=== PATIENT | female | born 1950 | race Caucasian/White ===

== ENCOUNTER 2018-09-29 10:18 | Day surgery (SDC) | payer OTHER, MEDICARE ==
[2018-09-29 08:07] VITALS: BMI 27.5
[2018-09-29 14:11] VITALS: TEMP 97.9
[2018-09-29 15:12] VITALS: BP 112/67; PULSE 74
--- NOTE | 2018-10-01 18:13 | PATH ---
Surgical Pathology Report Patient Name: SADAF MOLINA [facility]. Rec. #: [id number] /Age/Gender: 1950 (Age: 68) / F Account: [id number] Location: [facility]-ENDOSCOPY Taken: 09/29/2018 Received: 09/30/2018 Reported: 10/01/2018 Physicians: Krystian Womack D.O. Specimen(s) Received A: CECAL POLYP #1 B: APPENDICEAL ORIFICE POLYP C: SIGMOID POLYP D: RECTAL POLYPS E: ANAL PAPILLA Clinical History Followup diverticulitis, history of adenomatous polyps Postoperative diagnosis: Colon polyps, diverticulosis Final Diagnosis A. CECAL POLYP #1, BIOPSY: POLYPOID COLONIC MUCOSA WITH PROMINENT LYMPHOID AGGREGATE. B. APPENDICEAL ORIFICE, POLYPS, BIOPSY: TUBULAR ADENOMA. POLYPOID COLONIC MUCOSA WITH PROMINENT LYMPHOID AGGREGATE. C. SIGMOID COLON, POLYP, BIOPSY: TUBULAR ADENOMA. D. RECTAL POLYPS, BIOPSY: HYPERPLASTIC POLYP(S). E. ANAL PAPILLA, BIOPSY: POLYPOID SQUAMOUS MUCOSA WITH FOCAL PARAKERATOSIS AND FOCAL STROMAL FIBROSIS COMPATIBLE WITH HYPERTROPHIED ANAL PAPILLA. Comment: Suggest clinical/endoscopic correlation. Electronically Signed Sadaf Schroeder M.D. Gross Description A. Received in formalin, labeled "cecal polyp #1" is a monahan, irregular portion of soft tissue measuring 0.3 cm. in greatest dimension. The specimen is submitted in toto in one cassette. B. Received in formalin, labeled "appendiceal orifice polyps x3" are 3 monahan, irregular portions of soft tissue ranging from 0.1-0.3 cm. in greatest dimension. The specimens are submitted in toto in one cassette. C. Received in formalin, labeled "sigmoid polyp biopsy" is a monahan, irregular portion of soft tissue measuring 0.2 cm. in greatest dimension. The specimen is submitted in toto in one cassette. D. Received in formalin, labeled "rectal polyps biopsy x3" are 2 monahan, irregular portions of soft tissue averaging 0.3 cm. in greatest dimension. The specimens are submitted in toto in one cassette. E. Received in formalin, labeled "anal papilla" are 5 monahan, irregular portions of soft tissue ranging from 0.1-0.4 cm. in greatest dimension. The specimens are submitted in toto in one cassette. DL/09/30/201809/30/2018
== END 2018-09-29 15:12 | disposition home or self-care (01) ==
LOC: JASU-ENDO 10:18
PROVIDERS: ATTEND Internal Medicine Gastroenterology
PROC: 0DBN8ZX Excision of Sigmoid Colon, Via Natural or Artificial Opening Endoscopic, Diagnostic (ICD-10-PCS; 2018-09-29)
PROC: 0DBP8ZX Excision of Rectum, Via Natural or Artificial Opening Endoscopic, Diagnostic (ICD-10-PCS; 2018-09-29)
PROC: 0DBH8ZX Excision of Cecum, Via Natural or Artificial Opening Endoscopic, Diagnostic (ICD-10-PCS; principal; 2018-09-29 11:30)
DX: Z12.11 Encounter for screening for malignant neoplasm of colon (principal); K62.1 Rectal polyp; D12.0 Benign neoplasm of cecum; D12.5 Benign neoplasm of sigmoid colon; K64.8 Other hemorrhoids; K57.30 Diverticulosis of large intestine without perforation or abscess without bleeding
CPT/HCPCS: 88305-TC

== ENCOUNTER 2019-03-16 10:18 | Day surgery (SDC) | payer OTHER, MEDICARE ==
[2019-03-15 15:19] VITALS: BMI 26.9
[2019-03-16 12:02] VITALS: TEMP 97.5
[2019-03-16 12:50] VITALS: BP 117/74; PULSE 65
--- NOTE | 2019-03-17 16:30 | PATH ---
Surgical Pathology Report Patient Name: REINALDO MOLINA [facility]. Rec. #: [id number] /Age/Gender: 1950 (Age: 68) / F Account: [id number] Location: U-ENDOSCOPY Taken: 03/16/2019 Received: 03/16/2019 Reported: 03/17/2019 Physicians: Krystian Womack D.O. Specimen(s) Received A: ULCER, BODY OF STOMACH H.PYLORI B: ANGULARIS AND BODY C: MID AND DISTAL ESOPHAGUS D: PROXIMAL ESOPHAGUS Clinical History Dysphagia Postoperative diagnosis: Gastritis, gastric ulcer Final Diagnosis A. ULCER, BODY OF STOMACH, BIOPSY: GASTRIC MUCOSA SHOWING FOCAL EPITHELIAL EROSION WITH REGENERATIVE CHANGE, CHRONIC GASTRITIS, AND STROMAL EDEMA. IMMUNOSTAIN FOR H. PYLORI IS NEGATIVE. NEGATIVE FOR INTESTINAL METAPLASIA. B. ANGULARIS AND BODY, BIOPSY: GASTRIC MUCOSA WITH MILD CHRONIC GASTRITIS. IMMUNOSTAIN FOR H. PYLORI IS NEGATIVE. NEGATIVE FOR INTESTINAL METAPLASIA. C. MID AND DISTAL ESOPHAGUS, BIOPSY: SQUAMOUS (ESOPHAGEAL) MUCOSA WITH NO SIGNIFICANT PATHOLOGIC CHANGE. NO HISTOLOGIC EVIDENCE OF EOSINOPHILIC ESOPHAGITIS. D. PROXIMAL ESOPHAGUS, BIOPSY: SQUAMOUS (ESOPHAGEAL) MUCOSA WITH NO SIGNIFICANT PATHOLOGIC CHANGE. NO HISTOLOGIC EVIDENCE OF EOSINOPHILIC ESOPHAGITIS. Electronically Signed Jaron Guardado M.D. Gross Description A. Received in formalin, labeled "biopsy ulcer body of stomach" are 4 monahan, irregular portions of soft tissue ranging from 0.3-0.4 cm. in greatest dimension. The specimens are submitted in toto in one cassette. B. Received in formalin, labeled "biopsy angularis and body" are 3 monahan, irregular portions of soft tissue ranging from 0.2-0.3 cm. in greatest dimension. The specimens are submitted in toto in one cassette. C. Received in formalin, labeled "biopsy mid and distal esophagus" are 4 monahan, irregular portions of soft tissue ranging from 0.1-0.3 cm. in greatest dimension. The specimens are submitted in toto in one cassette. D. Received in formalin, labeled "biopsy proximal esophagus" are 2 monahan, irregular portions of soft tissue measuring 0.2 and 0.4 cm. in greatest dimension. The specimens are submitted in toto in one cassette. DL/03/16/2019 saudi/03/16/2019
== END 2019-03-16 13:09 | disposition home or self-care (01) ==
LOC: JASU-ENDO 10:18
PROVIDERS: ATTEND Internal Medicine Gastroenterology
PROC: 0DB68ZX Excision of Stomach, Via Natural or Artificial Opening Endoscopic, Diagnostic (ICD-10-PCS; 2019-03-16)
PROC: 0DB18ZX Excision of Upper Esophagus, Via Natural or Artificial Opening Endoscopic, Diagnostic (ICD-10-PCS; 2019-03-16)
PROC: 0DB28ZX Excision of Middle Esophagus, Via Natural or Artificial Opening Endoscopic, Diagnostic (ICD-10-PCS; 2019-03-16)
PROC: 0DB38ZX Excision of Lower Esophagus, Via Natural or Artificial Opening Endoscopic, Diagnostic (ICD-10-PCS; 2019-03-16)
PROC: 0DB48ZX Excision of Esophagogastric Junction, Via Natural or Artificial Opening Endoscopic, Diagnostic (ICD-10-PCS; 2019-03-16)
PROC: 0DB98ZX Excision of Duodenum, Via Natural or Artificial Opening Endoscopic, Diagnostic (ICD-10-PCS; principal; 2019-03-16 12:15)
DX: K29.50 Unspecified chronic gastritis without bleeding (principal); K25.9 Gastric ulcer, unspecified as acute or chronic, without hemorrhage or perforation
CPT/HCPCS: 88305-TC; 88342-TC

== ENCOUNTER 2021-03-22 07:13 | Day surgery (SDC) | payer OTHER, MEDICARE ==
[2021-03-14 11:18] VITALS: BMI 28.3
[2021-03-22] MEDS ORDERED: oxyCODONE HCL 5 MG TABLET PO PRN (07:50)
[2021-03-22] MEDS ORDERED: ONDANSETRON 4 MG/2 ML VIAL IVPUSH PRN (07:50)
[2021-03-22] MEDS ORDERED: PROMETHAZINE HCL 25 MG/1 ML VIAL IVPUSH PRN (07:50)
[2021-03-22] MEDS ORDERED: LACTATED RINGERS SOLUTION 1,000 ML IV SCH (08:00)
[2021-03-22] MEDS ORDERED: BUPIVACAINE HCL/PF 0.25% (2.5MG/ML) 10 ML VIAL ONE (08:25)
[2021-03-22] MEDS ORDERED: BUPIVACAINE HCL 50 ML ONE (08:26)
[2021-03-22] MEDS ORDERED: LIDOCAINE HCL 1%, 10 MG/ML (20ML VIAL) ONE (08:26)
[2021-03-22] MEDS ORDERED: PROPOFOL 20 ML ONE ×3 (09:23)
[2021-03-22] MEDS ORDERED: ceFAZolin SODIUM 1 GM VIAL ONE (09:35)
[2021-03-22 10:21] VITALS: PULSE 79; TEMP 97.7
[2021-03-22 10:50] VITALS: BP 114/50
== END 2021-03-22 11:10 | disposition home or self-care (01) ==
LOC: FASU 07:13
PROVIDERS: ATTEND Orthopaedic Surgery
PROC: 0LB60ZZ Excision of Left Lower Arm and Wrist Tendon, Open Approach (ICD-10-PCS; 2021-03-22)
PROC: 0LB60ZZ Excision of Left Lower Arm and Wrist Tendon, Open Approach (ICD-10-PCS; 2021-03-22)
PROC: 0LB60ZZ Excision of Left Lower Arm and Wrist Tendon, Open Approach (ICD-10-PCS; 2021-03-22)
PROC: 0LB60ZZ Excision of Left Lower Arm and Wrist Tendon, Open Approach (ICD-10-PCS; 2021-03-22)
PROC: 0LB60ZZ Excision of Left Lower Arm and Wrist Tendon, Open Approach (ICD-10-PCS; 2021-03-22)
PROC: 0LB60ZZ Excision of Left Lower Arm and Wrist Tendon, Open Approach (ICD-10-PCS; 2021-03-22)
PROC: 0LB60ZZ Excision of Left Lower Arm and Wrist Tendon, Open Approach (ICD-10-PCS; 2021-03-22)
PROC: 0LB60ZZ Excision of Left Lower Arm and Wrist Tendon, Open Approach (ICD-10-PCS; 2021-03-22)
PROC: 0LB60ZZ Excision of Left Lower Arm and Wrist Tendon, Open Approach (ICD-10-PCS; 2021-03-22)
PROC: 01N50ZZ Release Median Nerve, Open Approach (ICD-10-PCS; principal; 2021-03-22 09:42)
DX: G56.02 Carpal tunnel syndrome, left upper limb (principal); M65.832 Other synovitis and tenosynovitis, left forearm
CPT/HCPCS: 88304-TC

== ENCOUNTER 2021-08-30 07:46 | Day surgery (SDC) | payer OTHER, MEDICARE ==
[2021-08-14 13:37] VITALS: BMI 27.3
[2021-08-30] MEDS ORDERED: LIDOCAINE HCL 1%, 10 MG/ML (20ML VIAL) ONE (07:54)
[2021-08-30] MEDS ORDERED: BUPIVACAINE HCL 50 ML ONE (07:55)
[2021-08-30] MEDS ORDERED: SUCCINYLCHOLINE CHLORIDE 200 MG/10 ML SYRINGE ONE (10:04)
[2021-08-30] MEDS ORDERED: PROPOFOL 20 ML ONE ×2 (10:04)
[2021-08-30] MEDS ORDERED: MIDAZOLAM HCL 2 MG/2 ML SINGLE DOSE VIAL ONE (10:04)
[2021-08-30] MEDS ORDERED: ONDANSETRON 4 MG/2 ML VIAL ONE (10:18)
[2021-08-30] MEDS ORDERED: DEXAMETHASONE SOD PHOSPHATE 4 MG/1 ML VIAL ONE (10:18)
[2021-08-30] MEDS ORDERED: ceFAZolin SODIUM 1 GM VIAL ONE (10:18)
[2021-08-30] MEDS ORDERED: KETOROLAC TROMETHAMINE 30 MG/1 ML VIAL ONE (10:18)
[2021-08-30] MEDS ORDERED: ONDANSETRON 4 MG/2 ML VIAL IVPUSH PRN (10:46)
[2021-08-30] MEDS ORDERED: ACETAMINOPHEN 325 MG TABLET (FP) PO PRN (10:46)
[2021-08-30] MEDS ORDERED: oxyCODONE HCL 5 MG TABLET PO PRN (10:46)
[2021-08-30 10:59] VITALS: TEMP 97.8
[2021-08-30 11:22] VITALS: BP 105/67; PULSE 75
== END 2021-08-30 11:58 | disposition home or self-care (01) ==
LOC: FASU 07:46
PROVIDERS: ATTEND Orthopaedic Surgery
PROC: 0LB50ZZ Excision of Right Lower Arm and Wrist Tendon, Open Approach (ICD-10-PCS; 2021-08-30)
PROC: 0LB50ZZ Excision of Right Lower Arm and Wrist Tendon, Open Approach (ICD-10-PCS; 2021-08-30)
PROC: 0LB50ZZ Excision of Right Lower Arm and Wrist Tendon, Open Approach (ICD-10-PCS; 2021-08-30)
PROC: 0LB50ZZ Excision of Right Lower Arm and Wrist Tendon, Open Approach (ICD-10-PCS; 2021-08-30)
PROC: 0LB50ZZ Excision of Right Lower Arm and Wrist Tendon, Open Approach (ICD-10-PCS; 2021-08-30)
PROC: 0LB50ZZ Excision of Right Lower Arm and Wrist Tendon, Open Approach (ICD-10-PCS; 2021-08-30)
PROC: 0LB50ZZ Excision of Right Lower Arm and Wrist Tendon, Open Approach (ICD-10-PCS; 2021-08-30)
PROC: 0LB50ZZ Excision of Right Lower Arm and Wrist Tendon, Open Approach (ICD-10-PCS; 2021-08-30)
PROC: 0LB50ZZ Excision of Right Lower Arm and Wrist Tendon, Open Approach (ICD-10-PCS; 2021-08-30)
PROC: 01N50ZZ Release Median Nerve, Open Approach (ICD-10-PCS; principal; 2021-08-30 10:17)
DX: G56.01 Carpal tunnel syndrome, right upper limb (principal); M65.861 Other synovitis and tenosynovitis, right lower leg
CPT/HCPCS: 88304-TC; 88312-TC

== ENCOUNTER 2022-12-10 04:24 | Day surgery (SDC) | payer OTHER, MEDICARE ==
[2022-12-09 13:39] VITALS: BMI 25.4
[2022-12-10 10:06] VITALS: TEMP 97
[2022-12-10 10:32] VITALS: RESP 13
[2022-12-10 10:40] VITALS: BP 123/65; PULSE 61
== END 2022-12-10 11:05 | disposition home or self-care (01) ==
LOC: JASU-ENDO 04:24
PROVIDERS: ATTEND Internal Medicine Gastroenterology
PROC: 0DBP8ZX Excision of Rectum, Via Natural or Artificial Opening Endoscopic, Diagnostic (ICD-10-PCS; 2022-12-10)
PROC: 3E0H8KZ Introduction of Other Diagnostic Substance into Lower GI, Via Natural or Artificial Opening Endoscopic (ICD-10-PCS; 2022-12-10)
PROC: 0DBH8ZX Excision of Cecum, Via Natural or Artificial Opening Endoscopic, Diagnostic (ICD-10-PCS; principal; 2022-12-10 09:15)
DX: Z12.11 Encounter for screening for malignant neoplasm of colon (principal); D12.0 Benign neoplasm of cecum; D12.8 Benign neoplasm of rectum; K64.8 Other hemorrhoids; K57.30 Diverticulosis of large intestine without perforation or abscess without bleeding; Z86.010 Personal history of colon polyps

== ENCOUNTER 2022-12-17 04:45 | Day surgery (SDC) | payer OTHER, MEDICARE ==
[2022-12-16 09:10] VITALS: BMI 27.3
[2022-12-17 08:25] VITALS: TEMP 97.5
[2022-12-17 10:07] VITALS: RESP 14
[2022-12-17 10:32] VITALS: PULSE 65
[2022-12-17 10:37] VITALS: BP 121/63
== END 2022-12-17 11:02 | disposition home or self-care (01) ==
LOC: JASU-ENDO 04:45
PROVIDERS: ATTEND Internal Medicine Gastroenterology
PROC: 0DB78ZX Excision of Stomach, Pylorus, Via Natural or Artificial Opening Endoscopic, Diagnostic (ICD-10-PCS; 2022-12-17)
PROC: 0DB68ZX Excision of Stomach, Via Natural or Artificial Opening Endoscopic, Diagnostic (ICD-10-PCS; 2022-12-17)
PROC: 0DB48ZX Excision of Esophagogastric Junction, Via Natural or Artificial Opening Endoscopic, Diagnostic (ICD-10-PCS; principal; 2022-12-17 08:45)
DX: K21.00 Gastro-esophageal reflux disease with esophagitis, without bleeding (principal); K44.9 Diaphragmatic hernia without obstruction or gangrene; K29.50 Unspecified chronic gastritis without bleeding; K31.7 Polyp of stomach and duodenum; Z87.19 Personal history of other diseases of the digestive system
CPT/HCPCS: 88305-TC; 88342-TC